=== PATIENT | female | born 1995 | race Hispanic/Latino ===

== ENCOUNTER 2017-11-08 07:17 | Day surgery (SDC) | payer OTHER ==
[~2017-11-08] VITALS: Ht 165.1 cm; Wt 74.6 kg
[~2017-11-08 07:17] MED LIST: NORG1TAB12 PO; SODIUM CHLORIDE 0.9% 1000ML 1,000 ML IV ONE
[2017-11-08 08:05] VITALS: BP 131/63
[2017-11-08] MEDS ORDERED: PROPOFOL 10 MG/ML 20ML VIAL IV ONE (09:00)
[2017-11-08] MEDS ORDERED: FENTANYL CITRATE PF 50 MCG/1 ML 2ML VIAL ONE (09:00)
[2017-11-08 09:26] VITALS: BP 110/58
== END 2017-11-08 10:00 ==
LOC: ENDO 07:17 → DAH 07:17 → ENDO 10:00
PROVIDERS: ATTEND Internal Medicine Gastroenterology
DX: K51.20 Ulcerative (chronic) proctitis without complications (principal); K21.9 Gastro-esophageal reflux disease without esophagitis; Z79.899 Other long term (current) drug therapy; K51.90 Ulcerative colitis, unspecified, without complications
CPT/HCPCS: 43235; 45380; 81025; 88305; A4606; J2704; J3010; J7030